=== PATIENT | male | born 1985 | race Asian ===

== ENCOUNTER 2018-10-17 08:12 | Day surgery (SDC) | payer BC ==
[2018-10-13 14:31] VITALS: BMI 32.8
[2018-10-17 08:36] LABS: Prothrombin Time 13.7 SEC (12.0-14.7)
[2018-10-17 08:41] LABS: #Basophils 0.1 thou/uL (0.0-0.2); #Eosinphils 0.2 thou/uL (0.0-0.7); #Lymphocytes 2.3 thou/uL (1.20-3.40); #Monocytes 0.4 thou/uL (0.11-0.59); #Neutrophils 3.5 thou/uL (1.40-6.50); %Basophils 1.1 % (0.0-1.0); %Eosinophils 2.6 % (0.0-10.0); %Lymphocytes 35.8 % (21.0-51.0); %Monocytes 6.5 % (0.0-10.0); %Neutrophils 53.9 % (42.0-75.0); Hemoglobin 15.1 g/dL (14.0-18.0); Mean Corpuscular Hemoglobin 32.7 pg (27.0-31.0); Mean Corpuscular Volume 90.7 fL (78.0-98.0); Mean Platelet Volume 7.9 fL (7.4-10.4); Platelet Count 218 thou/uL (130-400); RBC Distribution Width 11.2 % (11.5-14.5); Red Blood Cell (RBC) Count 4.62 mill/uL (4.70-6.10); White Blood Cell (WBC) Count 6.4 thou/uL (4.8-10.8)
[2018-10-17] MEDS ORDERED: Fentanyl 100 MCG/2 ML VIAL ONE (09:26)
[2018-10-17] MEDS ORDERED: Midazolam HCl 2 mg/2 ml Vial ONE (09:27)
--- NOTE | 2018-10-17 10:13 | ULT ---
US Hepatic Bx ULTRASOUND GUIDED HEPATIC BIOPSY: CLINICAL HISTORY: Hepatic steatosis. PROCEDURE: Informed consent was obtained and the patient was escorted to the procedural suite, placed in supine position. Conscious sedation for a total [id number] was performed, administered by the radiology nurse, with the patient consistently monitored throughout the duration of the exam in stable conditio n. The patient's skin was prepped and draped in a standard sterile fashion and topical anesthesia with buffered 1% lidocaine was performed. After a small skin incision was made within the ventral abd omen, an 18-gauge needle was advanced to the leading edge of the left hepatic lobe. After adequate placement was confirmed with ultrasound imaging one core specimen was obtained via percutaneous biops y. Postprocedural imaging reveals no significant complication. All devices were then removed from the patient. No unexpected procedural complications were present. The patient was monitored in radiology holding i n stable condition prior to discharge with family member. IMPRESSION: Technically successful ultrasound-guided liver biopsy. Pathology results are pending.
[2018-10-17 11:39] VITALS: BP 133/81; TEMP 97.5
== END 2018-10-17 11:15 | disposition home or self-care (01) ==
LOC: ULT 08:12
PROVIDERS: ATTEND Internal Medicine Gastroenterology
PROC: 0F923ZX Drainage of Left Lobe Liver, Percutaneous Approach, Diagnostic (ICD-10-PCS; principal; 2018-10-17)
DX: K75.9 Inflammatory liver disease, unspecified (principal); K74.0 Hepatic fibrosis; K76.0 Fatty (change of) liver, not elsewhere classified; E55.9 Vitamin D deficiency, unspecified; E78.1 Pure hyperglyceridemia; I10 Essential (primary) hypertension; Z86.010 Personal history of colon polyps; Z79.84 Long term (current) use of oral hypoglycemic drugs; Z79.899 Other long term (current) drug therapy
CPT/HCPCS: 36415; 47000; 76942; 85025; 85610; 85730; 88307; 88313; J2250; J3010